=== PATIENT | female | born 1980 | race Asian ===

== ENCOUNTER 2016-08-23 12:42 | Outpatient (CLI) | payer OTHER ==
[~2016-08-23 12:42] MED LIST: NIFE30TA PO
== END 2016-08-24 02:01 | disposition home or self-care (01) ==
LOC: MAMMO 12:42
DX: Z12.31 Encounter for screening mammogram for malignant neoplasm of breast (principal)
CPT/HCPCS: G0202-TC

== ENCOUNTER 2018-01-20 10:44 | Outpatient (CLI) | payer OTHER | END 2018-01-20 19:46 | disposition home or self-care (01) | LOC: MAMMO 10:44 | DX: Z12.31 Encounter for screening mammogram for malignant neoplasm of breast (principal) ==

== ENCOUNTER 2018-10-06 04:08 | Emergency (ER) | payer OTHER ==
[~2018-10-06] VITALS: Ht 149.9 cm; Wt 87.1 kg
[2018-10-06 05:05] LABS: PLATELET COUNT 468 K/uL (152-353)
[2018-10-06 05:11] LABS: POTASSIUM 3.8 mmol/L (3.6-5.2)
[2018-10-06 05:45] VITALS: BP 147/74; TEMP 98.1
== END 2018-10-06 05:47 | disposition home or self-care (01) ==
LOC: ED 04:08
PROVIDERS: Internal Medicine
DX: H81.13 Benign paroxysmal vertigo, bilateral (principal)
CPT/HCPCS: 36415; 80053; 85027; 93005; 99283

== ENCOUNTER 2021-03-14 19:10 | Emergency (ER) | payer OTHER ==
[~2021-03-14] VITALS: Ht 149.9 cm; Wt 82.6 kg
[2021-03-14 19:28] VITALS: BP 168/94; TEMP 98.7
== END 2021-03-14 20:08 | disposition home or self-care (01) ==
LOC: ED 19:10
DX: T60.91XA Toxic effect of unspecified pesticide, accidental (unintentional), initial encounter (principal); X58.XXXA Exposure to other specified factors, initial encounter; Y92.89 Other specified places as the place of occurrence of the external cause
CPT/HCPCS: 99281

== ENCOUNTER 2021-07-27 18:49 | Emergency (ER) | payer OTHER ==
[~2021-07-27] VITALS: Ht 149.9 cm; Wt 80.7 kg
[2021-07-27 19:23] LABS: PLATELET COUNT 387 K/uL (152-353)
[2021-07-27 22:20] VITALS: BP 144/83; TEMP 98.4
== END 2021-07-27 22:20 | disposition home or self-care (01) ==
LOC: ED 18:49
PROVIDERS: Hospitalist
DX: J06.9 Acute upper respiratory infection, unspecified (principal); E86.0 Dehydration; E11.65 Type 2 diabetes mellitus with hyperglycemia; Z20.822 Contact with and (suspected) exposure to COVID-19
CPT/HCPCS: 36415; 80053; 81002; 82948; 84484; 85027; 87502; 87635; 87651; 93005; 96360; 96361; 96365; 96375; 99284; J0696; J1815; U0003

== ENCOUNTER 2022-02-20 00:02 | Emergency (ER) | payer OTHER ==
[~2022-02-20] VITALS: Ht 149.9 cm; Wt 84.8 kg
[2022-02-20 02:58] LABS: PLATELET COUNT 590 K/uL (152-353)
[2022-02-20 03:04] LABS: PARTIAL THROMBOPLASTIN TIME 25.7 SECONDS (24.5-33.6)
[2022-02-20] MEDS ORDERED: LEVOFLOXACIN500 MG PO (04:10)
[2022-02-20 06:10] VITALS: BP 124/71; TEMP 97.4
== END 2022-02-20 06:15 | disposition home or self-care (01) ==
LOC: ED 00:02
PROVIDERS: Emergency Medicine
DX: J18.9 Pneumonia, unspecified organism (principal)
CPT/HCPCS: 36415; 81002; 84484; 85027; 85610; 85730; 87040; 96360; 96365; 99284; J1956

== ENCOUNTER 2022-02-22 21:58 | Emergency (ER) | payer OTHER ==
[~2022-02-22] VITALS: Ht 149.9 cm; Wt 84.8 kg
[~2022-02-22 21:58] MED LIST changes: +LEVOFLOXACIN500 MG PO
[2022-02-22 23:01] LABS: PLATELET COUNT 603 K/uL (152-353)
[2022-02-22 23:22] LABS: POTASSIUM 3.9 mmol/L (3.6-5.2)
[2022-02-23 00:08] VITALS: BP 146/83; TEMP 98
== END 2022-02-23 00:08 | disposition home or self-care (01) ==
LOC: ED 21:58
PROVIDERS: Emergency Medicine Emergency Medical Services
DX: U07.1 COVID-19 (principal); J40 Bronchitis, not specified as acute or chronic
CPT/HCPCS: 36415; 80048; 81025; 84484; 85027; 93005; 96360; 99284

== ENCOUNTER 2022-03-17 22:02 | Emergency (ER) | payer OTHER ==
[~2022-03-17] VITALS: Ht 149.9 cm; Wt 84.8 kg
[2022-03-17 23:26] LABS: PLATELET COUNT 421 K/uL (152-353)
[2022-03-17 23:27] LABS: POTASSIUM 3.6 mmol/L (3.6-5.2)
[2022-03-18 00:20] VITALS: BP 134/80; TEMP 98.3
== END 2022-03-18 00:20 | disposition home or self-care (01) ==
LOC: ED 22:02
PROVIDERS: Emergency Medicine Emergency Medical Services
DX: I10 Essential (primary) hypertension (principal)
CPT/HCPCS: 80048; 81002; 85027; 93005; 99283